=== PATIENT | female | born 1950 | race Caucasian/White ===

== ENCOUNTER 2016-12-23 05:15 | Inpatient (IN) | payer BC ==
[2016-12-18 13:06] VITALS: BMI 31.1
[2016-12-23] VITALS (31 sets, daily range): BP systolic 111–148; BP diastolic 55–91; PULSE 76–91; RESP 11–20; Ht 157.5 cm; Wt 78.2 kg
[~2016-12-23] VITALS: Ht 157.5 cm; Wt 78.2 kg
[~2016-12-23 05:15] MED LIST: LEVO75TA5 PO; SIMV20TA PO; SPIR50TA PO
[2016-12-23] MEDS ORDERED: LACTATED RINGER'S 1,000 ML IV* SCH ×2 (06:00)
[2016-12-23] MEDS ORDERED: CEFAZOLIN 2 GM/50 ML (PMX) 50 ML IVPB ONE (06:00)
[2016-12-23] MEDS ORDERED: POLYMYXIN/BACITRACIN 1L IRRIG ONE (06:32)
--- NOTE | 2016-12-23 06:35 | HPN ---
Date/Time of Note Date/Time of Note DATE: 12/23/16 TIME: 06:35 Interval H&P Admission Note Pt. seen H&P reviewed: No system changes GABRIEL BLOOM MD Dec 23, 2016 06:35
[2016-12-23] MEDS ORDERED: GELATIN SIZE 100 SPONGE ONE (06:46)
[2016-12-23] MEDS ORDERED: BUPIVACAINE 0.25% (MPF) 10 ML 10 ML VIAL ONE (06:46)
[2016-12-23] MEDS ORDERED: THROMBIN 5000 UNIT VIAL ONE (06:47)
[2016-12-23] MEDS ORDERED: NEOSTIGMINE 3 MG/3 ML SYRINGE ONE ×2 (06:51→08:36)
[2016-12-23] MEDS ORDERED: GLYCOPYRROLATE 0.4 MG INJ ONE ×2 (06:51→08:36)
[2016-12-23] MEDS ORDERED: MEPERIDINE 100 MG INJ ONE (06:51)
[2016-12-23] MEDS ORDERED: SUCCINYLCHOLINE CHLORIDE 100 MG/5 ML SYG IV ONE (06:51)
[2016-12-23] MEDS ORDERED: PROPOFOL 20 ML ONE (06:51)
[2016-12-23] MEDS ORDERED: LIDOCAINE 2% (SDV) 5 ML INJ ONE (06:51)
[2016-12-23] MEDS ORDERED: ROCURONIUM 50 MG INJ ONE (06:51)
[2016-12-23] MEDS ORDERED: DIPHENHYDRAMINE 50 MG INJ ONE (07:20)
[2016-12-23] MEDS ORDERED: LABETALOL HCL 20MG INJ ONE (07:33)
--- NOTE | 2016-12-23 08:26 | RADRPT ---
PROCEDURE: XR Lumbar Spine one view. CLINICAL INDICATION: Low back pain. Intraoperative. TECHNIQUE: Prone portable cross-table lateral. COMPARISON: No prior studies are available for comparison. FINDINGS: There is transitional anatomy. For the purposes of this report, the last apparent true disc level is considered to be L5-S1. Based on this, the posterior needle markers are present crossing the lower L2 spinous process level and crossing the lower L3 spinous process level. IMPRESSION: 1. Intraoperative imaging as described above. RPTAT: QQ .Jakub Marina MD, Date Time Electronically viewed and signed by .Jakub Marina MD, on 12/23/2016 08:26 .R/
[2016-12-23] MEDS ORDERED: METOCLOPRAMIDE 10 MG INJ ONE (08:29)
[2016-12-23] MEDS ORDERED: ONDANSETRON 4 MG INJ ONE (08:29)
--- NOTE | 2016-12-23 08:29 | RADRPT ---
PROCEDURE: XR Lumbar Spine one view. CLINICAL INDICATION: Low back pain. Intraoperative. TECHNIQUE: Prone portable cross-table lateral. COMPARISON: Prior study done earlier the same day. FINDINGS: For the purposes of this report, the last apparent true disc level is considered to be L5-S1. Based on this, the posterior surgical instrument is present overlying the L3-4 level. IMPRESSION: 1. Intraoperative imaging as described above. RPTAT: QQ .Jakub aMrina MD, MD Date Time Electronically viewed and signed by .Jakub Marina MD, on 12/23/2016 08:28 .R/
[2016-12-23] MEDS ORDERED: METOCLOPRAMIDE 10 MG INJ IV PRN (08:30)
[2016-12-23] MEDS ORDERED: DIPHENHYDRAMINE 50 MG INJ IV PRN (08:30)
[2016-12-23] MEDS ORDERED: FENTAnyl 50 MCG/ML VIAL IV PRN ×2 (08:30)
[2016-12-23] MEDS ORDERED: ONDANSETRON 4 MG INJ IV PRN ×2 (08:30→10:00)
[2016-12-23] MEDS ORDERED: hydrALAzine 20 MG INJ IV PRN (08:30)
[2016-12-23] MEDS ORDERED: HYDROmorphONE (0.2 MG/ML) 10ML SYG IV PRN ×2 (08:30)
[2016-12-23] MEDS ORDERED: EPHEDrine SULFATE 50 MG/5 ML SYG IV PRN (08:30)
[2016-12-23] MEDS ORDERED: LABETALOL HCL 20MG INJ IV PRN (08:30)
[2016-12-23] MEDS ORDERED: MIDAZOLAM 1 MG/ML 2 ML INJ IV PRN (08:30)
[2016-12-23] MEDS ORDERED: HYDROmorphONE 0.2 MG/ML PCA ONE (09:18)
[2016-12-23] MEDS: MEPERIDINE 25 MG INJ IV PRN ×2 (09:19→09:44)
[2016-12-23] MEDS: FENTAnyl 50 MCG/ML VIAL IV PRN ×3 (09:28→09:39)
[2016-12-23] MEDS: DEXTROSE 5%-0.45% NACL 1,000 ML IV SCH ×3 (09:45→19:45)
--- NOTE | 2016-12-23 09:45 | SIPON ---
Date/Time of Note Date/Time of Note DATE: 12/23/16 TIME: 09:41 Operative Report Preoperative Diagnosis Herniated disc L3-4 on the right (foraminal) Postoperative Diagnosis Same Operation/Procedure Performed Right hemilaminotomy L3 Microdiscectomy L3-4 on the right Baxano transforaminal root decompression L3 on the right Medial facetectomy and foraminotomy L3-4 on the right Cosmetic wound closure (2.6 cm) Lateral localizing lumbar radiographs (2) Surgeon see signature line assistant winemaker Evon BENITEZA Anesthesia: general Estimated blood loss: 50 - 100 ml's Transfusion Required none Specimen Herniated disc L3-4 on the right Grafts/Implants none Complications none GABRIEL BLOOM MD Dec 23, 2016 09:45
[2016-12-23] MEDS: HYDROmorphONE (0.2 MG/ML) 10ML SYG IV PRN ×3 (09:46→10:02)
[2016-12-23] MEDS ORDERED: NACL 0.9% 3 ML SYG IV SCH (10:00)
[2016-12-23] MEDS ORDERED: NALOXONE (0.4 MG/ML) INJ IV PRN (10:00)
[2016-12-23] MEDS ORDERED: HYDROmorphONE 0.2 MG/ML PCA IV SCH (10:00)
[2016-12-23] MEDS ORDERED: CEPASTAT LOZENGE MT PRN (10:00)
[2016-12-23] MEDS ORDERED: traMADol 50 MG TAB PO PRN ×2 (10:00)
[2016-12-23] MEDS ORDERED: ZOLPIDEM 5 MG TAB PO PRN (10:00)
[2016-12-23] MEDS ORDERED: BETHANECHOL 25 MG TAB PO PRN (10:00)
[2016-12-23] MEDS ORDERED: DIAZEPAM 5 MG/ML SYG IM PRN (10:00)
[2016-12-23] MEDS ORDERED: AL HYDROX/MG HYDROX/SIMETH 30 ML CUP PO PRN (10:00)
[2016-12-23] MEDS ORDERED: DIAZEPAM 5 MG TAB PO PRN (10:00)
[2016-12-23] MEDS ORDERED: TRIMETHOBENZAMIDE 100 MG/ML VIAL IM PRN (10:00)
[2016-12-23] MEDS ORDERED: PROCHLORPERAZINE 10 MG TAB PO PRN (10:00)
[2016-12-23] MEDS ORDERED: DIPHENHYDRAMINE 50 MG CAP PO PRN (10:00)
[2016-12-23] MEDS: CEFAZOLIN 1 GM/50 ML (PMX) 50 ML IVPB SCH ×2 (11:55→18:18)
--- NOTE | 2016-12-23 12:13 | OPR ---
DATE OF OPERATION: 12/23/2016 PREOPERATIVE DIAGNOSIS: Herniated disk L3-L4 on the right (foraminal). POSTOPERATIVE DIAGNOSIS: Herniated disk L3-L4 on the right (foraminal). OPERATION/PROCEDURES: 1. Right hemilaminotomy L3. 2. Microdiskectomy L3-L4 on the right. 3. Medial facetectomy and foraminotomy, L3-L4 on the right. 4. Baxano transforaminal root decompression L3 on the right. 5. Cosmetic wound closure (2.6 cm). 6. Lateral localized lumbar radiographs (2). SUPERVISOR SCREEN PRINTING: CRISTEL Collazo ANESTHESIA: General endotracheal. ANESTHESIOLOGIST: Raman Randolph MD ESTIMATED BLOOD LOSS: 60 mL, none replaced. DRAINS: Two medium Hemovac drains employed. COMPLICATIONS: None. PERTINENT HISTORY AND PHYSICAL: This is a 66-year-old female with persistent back and right leg tanner n, numbness and weakness which has been unrelieved by conservative management. She has undergone a number of diagnostic studies including an MRI of the lumbar spine, which demonstrated a foraminal he rniation L3-L4 on the right (second mobile segment). Treatment options were discussed with the gilson ent, she elected to proceed with surgery. OPERATIVE FINDINGS AT SURGERY: The patient had a small right-sided foraminal herniation at L3-L4. Her baseline intraoperative nerve monitoring revealed a decrease in the right L4 potential of 40%. This returned to normal at the completion of surgery. OPERATIVE PROCEDURE: With the patient in supine position after satisfactory induction of general en dotracheal anesthesia by Dr. Sin Randolph, the patient was turned to the prone kneeling position onto [facility] frame. All pressure points were carefully padded. Back was prepped and draped in usual sterile fashion. Athrombic pumps were applied to the legs below the knees to prevent venous stasis during and after procedure. Two spinal needles were placed next to what was felt to be the L3 and L4 spinous processes, lateral roentgenogram taken which confirmed anatomic localization. A 2.6 cm i ncision was then carried out midline over the spinous process of L3 after skin was infiltrated with 0.25% Marcaine without epinephrine for postoperative analgesia. Superficial retractors were placed and hemostasis secured with electrocautery. Throughout the procedure, copious amounts of antibacter ial irrigating solution were used to periodically irrigate the wound. The fascia was incised in mid line with a hot knife and unilateral subperiosteal dissection carried out at L3 on the right. Deep retractors were placed and deep hemostasis secured with electrocautery. A second intraoperative radiograph was taken with a Vaishali retractor at what was felt to be the L3-L 4 interspace, and this was confirmed with second x-ray. The right hemilaminotomy L3 was then jarrell d out using Leksell rongeur, Kerrison punches and curettes. Ligamentum flavum was excised with luna p dissection. The operating microscope was then moved into place. A medial facetectomy and foramin otomy was accomplished at L3-L4 on the right using small hand osteotome, mallet, Kerrison punches an d curettes. The L4 root was then mobilized medially and protected with Chase'Manpreet nerve retractor usi ng microdissection technique. This revealed a small right-sided herniation of the L3-4 disk extendi ng out into the foramen. A 15 blade knife used to cut a rectangular window in the annulus and poste rior longitudinal ligament and multiple degenerative disk fragments were harvested with pituitary ro ngeurs and sent to laboratory for pathologic study. The outer part of the annulus was calcified. T he William and Tori curettes were used to augment the harvest of degenerative disk material from t he foramen. The epidural hemostasis was secured with bipolar electrocautery on low setting. Anesth esiologist then asked to perform a Valsalva maneuver at 40 mmHg and no spinal fluid leak was noted. At this point, there was still some distal foraminal stenosis and a Baxano instrumentation was broug ht onto the field. The Ipsi probe was placed into the L3 foramen on the right, and the guidewire pa ssed in the usual fashion. The neuro probe was then placed into the foramen to isolate the exiting L3 nerve root. With this having been accomplished, a 7.5 mm Baxano rasp was placed into the foramen and multiple reciprocations carried out to enlarge the posterior aspect of the foramen. The instru mentation was withdrawn. The foramen was flooded with 20 mL of irrigating solution and additional h emostasis secured with bipolar electrocautery on a low setting. A final Valsalva maneuver was then performed by the anesthesiologist to 40 mmHg and no spinal fluid leakage was noted. The wound was t hen closed in layers over 2 medium Hemovac drains, one below the fascia and one above the fascia usi ng #1 Vicryl [id number] approximating sutures in deep paralumbar musculature and deep fascia of the back, 2-0 Vicryl subcutaneous approximate sutures in subcu tissue, and a 4-0 Vicryl subcuticula r cosmetic closing suture on the skin. Dermabond and sterile compressive dressings were applied. Crys infante tolerated the procedure well, was then turned to the supine position onto her bed and extubat ed by Dr. Sin Randolph. She was transported to the recovery room in satisfactory condition. At the co nclusion of the procedure, sponge, instrument, and needle counts were all correct. NEED FOR COMPACT ASSEMBLER: During this spinal surgical procedure, my virtual assistant was used to retrac t and protect the spinal nerves and dural sac. My virtual assistant also employed the suction catheters to e vacuate blood from the surgical field to improve visualization of the neural structures. The assista nt was medically necessary to facilitate the completion of the surgery in a safe and expeditious man ner. State of [place] regulations, as well as hospital bylaws, preclude the use of non-licensed [facility] care personnel such as operating room technicians, to perform these functions. Throughout the procedure, neural monitoring was carried out by [employer] including EMG, SSEP and MEP monitoring of the L3, L4, L5 and S1 nerve roots bilaterally, along with spinal cord potentials. These were interpreted by a neurologist employed by [employer]. Dictated By: GABRIEL GARCIA/LIANA Conf#: [id number] DID#: [id number] CC: JORDON PALACIOS MD;*EndCC*
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
[2016-12-23] MEDS: RANITIDINE 150 MG TAB PO SCH (20:40)
[2016-12-23] MEDS ORDERED: ATORVASTATIN 20 MG TAB PO SCH (21:00)
[2016-12-24] VITALS: BP 102/50; RESP 20
[2016-12-24] MEDS: CEFAZOLIN 1 GM/50 ML (PMX) 50 ML IVPB SCH ×2 (00:45→06:11)
[2016-12-24 05:19] LABS: HEMATOCRIT 33.2 % (37.0-47.0); HEMOGLOBIN 10.9 g/dl (12.0-16.0)
[2016-12-24 05:42] LABS: CALCIUM 8.7 mg/dl (8.4-10.2); CREATININE 0.86 mg/dl (0.44-1.00); POTASSIUM 4.7 mmol/L (3.5-5.1)
[2016-12-24] MEDS ORDERED: LEVOTHYROXINE 75 MCG TAB ONE (05:43)
[2016-12-24] MEDS: DEXTROSE 5%-0.45% NACL 1,000 ML IV SCH ×2 (05:59→15:45)
[2016-12-24] MEDS ORDERED: LEVOTHYROXINE 75 MCG TAB PO SCH (07:00)
--- NOTE | 2016-12-24 07:05 | PN ---
Date/Time of Note Date/Time of Note DATE: 12/24/16 TIME: 07:04 Assessment/Plan Lines/Catheters IV [facility]ter Type (from [facility]): Peripheral IV Subjective 24 Hr Interval Summary The patient is postop day #1 following a microdiscectomy at L3-4 on the right. She is resting comfortably in bed. A.m. labs are unremarkable. Neurovascular structures are intact distally. Her Hemovac had 30 cc over the last shift and was discontinued. Her wound is clean and dry and was redressed. Will be ambulated with physical therapy and can be discharged home when cleared by physical therapy. She has been strict discharge precautions and instructions as well as follow-up arrangements. Exam/Review of Systems Vital Signs Vitals Vital Signs Date Time Temp Pulse Resp B/P Pulse Ox O2 Delivery O2 Flow Rate FiO2 12/24/16 00:00 98.1 86 20 102/50 96 12/23/16 14:45 Nasal Cannula 2.0 Intake and Output 12/23/16 12/23/16 12/24/16 15:00 23:00 07:00 Intake Total 1000 ml 1200 ml Output Total 55 ml 35 ml Balance 945 ml 1165 ml Results Result Diagram: 12/24/16 0429 12/24/16 0429 GABRIEL BLOOM MD Dec 24, 2016 07:05
[2016-12-24 07:51] VITALS: BP 118/63; RESP 18
[2016-12-24] MEDS ORDERED: BETHANECHOL 25 MG TAB PO PRN (08:00)
[2016-12-24] MEDS: RANITIDINE 150 MG TAB PO SCH (08:20)
[2016-12-24] MEDS: FERROUS SULFATE (EC) 325 MG TAB PO SCH ×2 (08:20→13:36)
[2016-12-24] MEDS ORDERED: DOCUSATE SODIUM 100 MG CAP PO SCH (09:00)
[2016-12-24] MEDS ORDERED: ASCORBIC ACID 500 MG TAB PO SCH (09:00)
[2016-12-24] MEDS ORDERED: SPIRONOLACTONE 50 MG TAB PO SCH (09:00)
[2016-12-24] MEDS: ACETAMINOPHEN 325 MG TAB PO PRN ×2 (09:39→15:43)
[2016-12-24 14:00] VITALS: BP 94/50; RESP 18
--- NOTE | 2016-12-28 09:59 | DS ---
Date/Time of Note Date/Time of Note DATE: 12/28/16 TIME: 09:57 Discharge Summary Admission/Discharge Info Admit Date/Time Dec 23, 2016 at 05:15 Discharge Date/Time Dec 24, 2016 at 16:15 Discharge Diagnosis Herniated disk L3-L4 on the right (foraminal) Patient Condition: Good Hospital Course Pt did well after surgery. Pain was well controlled. Her diet and activity were advanced as tolerated. She was discharged to home in good condition on POD #1 Home Meds Reported Medications Levothyroxine Sodium* (Levothyroxine Sodium*) 75 Mcg Tablet, 75 MCG PO BEFORE BREAKFAST, #30 TAB 12/18/16 Spironolactone* (Aldactone*) 50 Mg Tablet, 50 MG PO DAILY, #30 TAB 12/18/16 Simvastatin* (Zocor*) 20 Mg Tablet, 20 MG PO QHS, #30 TAB 12/18/16 Follow-up Plan Follow up with Dr. Donato in 1-2 weeks. Primary Care Provider Not On Staff Doctor MERVAT HOLLY Dec 28, 2016 09:59
== END 2016-12-24 16:15 | disposition home or self-care (01) | DRG 520 ==
LOC: REC 05:15 → MS1 10:51
PROVIDERS: ADMIT Orthopaedic Surgery; ATTEND Orthopaedic Surgery
PROC: 0SB20ZZ Excision of Lumbar Vertebral Disc, Open Approach (ICD-10-PCS; 2016-12-23)
PROC: 01NB0ZZ Release Lumbar Nerve, Open Approach (ICD-10-PCS; principal; 2016-12-23 07:00)
DX: M51.16 Intervertebral disc disorders with radiculopathy, lumbar region (principal); I10 Essential (primary) hypertension; E03.9 Hypothyroidism, unspecified; Z87.891 Personal history of nicotine dependence
CPT/HCPCS: 72020; 80048; 85014; 85018; 86850; 86900; 86901; 86920; 97116; 97161; A4310; J0690; J1170; J1200; J2175; J2405; J2710; J2765; J3010; J7042; J7120; J7999